=== PATIENT | male | born 2000 | race Two or more races ===

== ENCOUNTER 2024-10-22 20:18 | Emergency (ER) | payer OTHER ==
[2024-10-22 20:47] VITALS: BP 84/59; PULSE 86; RESP 18; TEMP 98.1; BMI 19.9
[2024-10-22] MEDS ORDERED: IBUPROFEN 600 MG TABLET (FP) PO ONE (22:01)
[2024-10-22] MEDS: IBUPROFEN 600 MG TABLET (FP) PO ONE (22:06)
== END 2024-10-22 22:05 | disposition home or self-care (01) ==
LOC: JERFT 20:18
DX: S93.402A Sprain of unspecified ligament of left ankle, initial encounter (principal); W21.05XA Struck by basketball, initial encounter
CPT/HCPCS: 73610-TC-LT-FY; 99283-25